=== PATIENT | female | born 1950 | race Caucasian/White ===

== ENCOUNTER 2021-03-08 15:04 | Inpatient (IN) ==
[2021-03-08] MEDS ORDERED: DEXAMETHASONE 10 MG/ML VIAL IV ONE (15:46)
--- NOTE | 2021-03-08 17:21 | Emergency Department Note ---
HPI General Chief complaint: Cold/Flu Symptoms Stated complaint: Covid Time Seen by Provider: 03/08/21 15:07 Source: EMS Mode of arrival: EMS Limitations: no limitations History of Present Illness HPI Narrative: This is a 70-year-old female patient with 10 days of Covid symptoms who presented to [facility] yesterday and tested positive for Covid. Chest x-ray was suggestive of a right lower lobe infiltrate and the patient was started on prednisone and levofloxacin. She returned to the [facility] again today for worsening shortness of breath and was noted to be 75% on room air. She was sent to the emergency room for further evaluation. At the bedside the patient is requiring 4 L of O2 to keep her sats above 90%. Off oxygen she is satting at 79%. She endorses feeling lightheaded with positional changes. Past medical history is significant for hypothyroidism and asthma. Patient is unvaccinated for Covid. Related Data Home Medications Medication Instructions Recorded Confirmed levothyroxine 100 mcg tablet 100 mcg PO QDAY tab 03/07/21 03/08/21 Allergies Allergy/AdvReac Type Severity Reaction Status Date / Time No Known Drug Allergies Allergy Verified 03/08/21 15:06 Review of Systems ROS ROS Narrative: Narrative: All systems ED: reviewed and negative except as stated. [facility] Narrative Patient History Narrative: Narrative: Medical/Surgical/Family History All Active Problems (Updated 03/08/21 @ 19:19 by Renata Hood PA-C) Respiratory failure with hypoxia (Acute) Pneumonia (Acute) Fever (Acute) Cough (Acute) Malaise (Acute) COVID-19 (Acute) Medical History Cough COVID-19 Fever Malaise Pneumonia Social History Smoking Status: Never smoker Exam Narrative Narrative: General: AOx3, NAD, nontoxic appearing. Pleasant and conversant. HEENT: PERRLA, EOMI, normocephalic. Moist mucous membranes. Normal facies and normal dentition. Respiratory: Bilateral crackles noted. No respiratory distress. Unlabored breathing. Heart: Regular rate and rhythm, no murmurs/clicks/rubs. Abdomen: Non-tender, Non distended, normal bowel tones. No organomegaly. Extremities: Warm and well perfused. No edema. DP 2+ bilaterally. No venous stasis. Neuro: No focal deficits. Cranial nerves II-XII normal. Skin: Warm dry, no rashes or lesions, no cyanosis. Psych: Normal mood and affect Heme/Lymph: No abnormal bruising General Limitations: no limitations Course Course Course Narrative: 70-year-old female presents for acute hypoxic respiratory failure secondary to Covid pneumonia. Reevaluation(s) Reevaluation #1: Obtain CBC, CMP query for superimposed bacterial infection Give 6 mg IV Decadron x1 dose now Patient will likely need admission for acute hypoxic respiratory failure and high oxygen requirements Vital Signs Vital signs: Vital Signs Temperature 98.1 F 03/08/21 15:06 Pulse Rate 63 03/08/21 15:06 Respiratory Rate 20 03/08/21 15:06 Blood Pressure 105/65 03/08/21 15:06 Pulse Oximetry (%) 92 03/08/21 15:06 Temperature 98.1 F 03/08/21 15:06 Pulse Rate 70 03/08/21 19:31 Respiratory Rate 20 03/08/21 15:06 Blood Pressure 123/72 03/08/21 19:31 Pulse Oximetry (%) 88 L 03/08/21 19:31 MDM MDM Narrative Medical decision making narrative: Acute hypoxic respiratory failure Covid pneumonia The patient received 2 L of IV fluids between minor care in the ER today. Her blood pressures have been stable with stable pulse. She continues to be hypoxic with requirement of 4 L O2. She meets admission criteria. She has been given Decadron x1 dose. Hospitalist has accepted the patient for admission. Patient is being disposed to PCU. Lab Data Result diagrams: 03/08/21 16:11 03/08/21 16:11 Labs: Lab Results 03/08/21 03/08/21 03/08/21 Range/Units 16:07 16:11 16:11 WBC 7.0 (4.5-11.0) K/mcL RBC 4.36 (3.59-5.38) M/mcL Hgb 12.7 (11.2-15.7) g/dL Hct 36.9 (34.1-44.9) % MCV 84.6 (80.0-100.0) fL MCH 29.1 (26.0-34.0) pg MCHC 34.4 (31.0-36.0) g/dL RDW 12.0 (11.5-14.5) % Plt Count 233 (140-440) K/mcL MPV 10.8 H (7.4-10.4) fL Seg Neutrophils % 82 H (38-78) % Band Neutrophils % 3 (0-10) % Lymphocytes % 9 L (15-49) % Monocytes % (Manual) 6 (1-12) % Platelet Estimate Normal (Normal) RBC Morphology Normal (Normal) Sodium 125 L (133-145) mmol/L Potassium 3.5 (3.3-5.1) mmol/L Chloride 93 L (96-108) mmol/L Carbon Dioxide 22 (22-30) mmol/L Anion Gap 10.0 (8.0-16.0) BUN 11 (8-23) mg/dL Creatinine 0.7 (0.6-1.1) mg/dL GFR Calculation 89 Glucose 130 H (70-105) mg/dL Calcium 7.9 L (8.6-10.4) mg/dL Total Bilirubin 0.4 (0.1-1.0) mg/dL AST 64 H (<32) U/L ALT 41 H (<40) U/L Alkaline Phosphatase 60 (39-117) U/L Total Protein 5.8 L (5.9-8.4) gm/dL Albumin 3.0 L (3.2-5.2) gm/dL Globulin 2.8 (2.2-3.7) gm/dL Albumin/Globulin Ratio 1.1 (1.0-2.3) Urine Color Yellow Urine Appearance Clear (Clear) Urine pH 6.0 (5.0-9.0) Ur Specific [place] 1.008 (1.000-1.035) Urine Protein Negative (Negative) mg/dL Urine Glucose (UA) Negative (Negative) mg/dL Urine Ketones Negative (Negative) mg/dL Urine Occult Blood Negative (Negative) mg/dL Urine Nitrate Negative (Negative) Urine Bilirubin Negative (Negative) mg/dL Urine Urobilinogen Negative mg/dL Ur Leukocyte Esterase Negative (Negative) /ug Ur Culture Indicated? No Discharge Plan Patient/Caregiver Discharge Instructions Pt seen by MORTICIAN HELPER/PA only: Yes Clinical Impression: COVID-19, Respiratory failure with hypoxia Patient Disposition: Xfer As Inpt ([facility]) Condition: Fair Prescriptions: No Action levothyroxine 100 mcg tablet 100 mcg PO QDAY RF: 0
[2021-03-08] MEDS ORDERED: 0.9 % SODIUM CHLORIDE 1,000 ML IV ONE (17:24)
[2021-03-08 17:47] LABS: Hematocrit 36.9 % (34.1-44.9); Hemoglobin 12.7 g/dL (11.2-15.7); Mean Cell Volume 84.6 fL (80.0-100.0); Mean Corpuscular HGB Conc 34.4 g/dL (31.0-36.0); Mean Platelet Volume 10.8 fL (7.4-10.4); Platelet Count 233 K/mcL (140-440); RBC 4.36 M/mcL (3.59-5.38)
[2021-03-08 17:59] LABS: Appearance,Urine CLEAR (Clear); Bilirubin,Urine Negative (Negative); Color,Urine YELLOW; Culture Indicated,Urine No; Glucose,Urine (UA) Negative (Negative); Ketones,Urine Negative (Negative); Leukocyte Esterase,Urine Negative /ug (Negative); Nitrate,Urine Negative (Negative); Protein,Urine Negative (Negative); Specific Gravity,Urine 1.008 (1.000-1.035); Urine Blood Negative (Negative); Urobilinogen,Urine Negative
[2021-03-08 18:07] LABS: ALT/SGPT 41 U/L (<40); AST/SGOT 64 U/L (<32); Albumin/Globulin Ratio 1.1 (1.0-2.3); Alkaline Phosphatase 60 U/L (39-117); Bilirubin,Total 0.4 mg/dL (0.1-1.0); Blood Urea Nitrogen 11 mg/dL (8-23); Calcium 7.9 mg/dL (8.6-10.4); Carbon Dioxide 22 mmol/L (22-30); Chloride 93 mmol/L (96-108); Globulin 2.8 gm/dL (2.2-3.7); Glomerular Filtration Rate 89; Glucose 130 mg/dL (70-105)
[2021-03-08 18:31] LABS: Band Neutrophils % 3 % (0-10); Lymphocytes % 9 % (15-49); Monocytes % (Manual) 6 % (1-12); Platelet Estimate NORMAL (Normal); RBC Morphology NORMAL (Normal); Segmented Neutrophils % 82 % (38-78)
--- NOTE | 2021-03-08 20:31 | Internal Med History&Physical ---
HPI History of Present Illness Patient information: Note initiated : 03/08/21 at 8:22 pm Service Date, if different from initiated Date: [] Patient: Jose J Hinson a 70 y/o F admitted on for Covid. Chief Complaint: [CoVID pneumonia] History of present illness: Ms. Hinson is a 70 year old F history of hypothyroidism presenting with 10-day history of chills, shortness of breath, productive cough, and general body weakness. She is not vaccinated against COVID-19. She has 10-day course of symptoms including chills, shortness of breath, productive cough, and general body weakness. She denies respiratory wheezing. She denied fever or diaphoresis. She denies muscle aches. She denies chest pain. She was being diagnosed with [facility] Today she was referred to our ER because of oxygen desaturations. Vital signs significant for oxygen saturations as low as upper 70s on room air, with rest of the vital signs within normal limits. Labs significant for lack of leukocytosis with WBC 7.0. Chemistry significant for hyponatremia with sodium 125. Chest x-ray from March 07, 2021 showed bilateral lower lung lobe infiltrates consistent with COVID-19 pneumonia. Constitutional Constitutional: Present chills, fatigue and weakness; Absent excessive sweating and fever(s) EENT Eyes: Absent blurry vision, change in vision, loss of vision and other visual disturbances Ears: Absent decreased hearing and tinnitus Nose, mouth and throat: Absent abnormal hearing, dry mouth, headache(s), nasal congestion and sore throat Cardiovascular Cardiovascular: Absent chest pain, chest pain at rest, edema, irregular heart rhythm and palpatations Respiratory Respiratory: Present cough, dyspnea, dyspnea on exertion and excessive phlegm production; Absent wheezing Gastrointestinal Gastrointestinal: Absent abdominal pain, constipation, diarrhea, nausea and vomiting Musculoskeletal Musculoskeletal: Absent back pain, deformity, limited range of motion, muscle cramps, muscle weakness and numbness Integumentary Integumentary: Absent lesions, rash and wounds Neurological Neurological: Absent focal weakness, headache(s) and numbness Psychiatric Psychiatric: Absent anxiety, depression and hallucinations PFSH PFSH All Active Problems (Updated 03/08/21 @ 20:26 by Luis M Newberry MD) Hypothyroidism (Acute) Hyponatremia (Acute) Respiratory failure with hypoxia (Acute) Pneumonia (Acute) Fever (Acute) Cough (Acute) Malaise (Acute) COVID-19 (Acute) Medical History Cough COVID-19 Fever Malaise Pneumonia MEDS/ALLERGIES Home Medications and Allergies Home Medications Medication Instructions Recorded Confirmed Type levothyroxine 100 mcg tablet 100 mcg PO QDAY tab 03/07/21 03/08/21 History Allergies Allergy/AdvReac Type Severity Reaction Status Date / Time No Known Drug Allergies Allergy Verified 03/08/21 15:06 EXAM Constitutional Vitals: Temp Pulse Resp BP Pulse Ox 36.7 C 70 20 123/72 88 L 03/08/21 15:06 03/08/21 19:31 03/08/21 15:06 03/08/21 19:31 03/08/21 19:31 General appearance: cooperative and mild distress Head Head exam: Present atraumatic and normocephalic Eye Eye exam: Present EOMI and PERRL ENT ENT exam: Present mucous membranes moist, normal exam and normal external ear exam Additional comments: Oxymask in place Neck Neck exam: Present normal inspection; Absent lymphadenopathy, tenderness and thyromegaly Respiratory Respiratory exam: Present rhonchi; Absent accessory muscle use, respiratory distress and wheezes Cardiovascular Cardiovascular exam: Present normal rate and rhythm; Absent JVD GI/Abdominal GI/Abdominal exam: Present normal bowel sounds and soft; Absent organomegaly and tenderness Extremities Exam Extremities exam: Present full ROM, normal capillary refill and normal inspection; Absent tenderness Neurological Exam Neurological exam: Present alert, CN II-XII intact and oriented X3; Absent motor sensory deficit Psychiatric Psychiatric exam: Present normal affect and normal mood; Absent anxious and depressed Skin Skin exam: Present dry and intact DATA Data Completed and Pending Labs: Labs from last 24 hours 03/08/21 03/08/21 03/08/21 20:20 16:11 16:11 WBC 7.0 RBC 4.36 Hgb 12.7 Hct 36.9 MCV 84.6 MCH 29.1 MCHC 34.4 RDW 12.0 Plt Count 233 MPV 10.8 H Seg Neutrophils % 82 H Band Neutrophils % 3 Lymphocytes % 9 L Monocytes % (Manual) 6 Platelet Estimate Normal RBC Morphology Normal VBG Lactic Acid Pending Sodium 125 L Potassium 3.5 Chloride 93 L Carbon Dioxide 22 Anion Gap 10.0 BUN 11 Creatinine 0.7 GFR Calculation 89 Glucose 130 H Calcium 7.9 L Total Bilirubin 0.4 AST 64 H ALT 41 H Alkaline Phosphatase 60 Total Protein 5.8 L Albumin 3.0 L Globulin 2.8 Albumin/Globulin Ratio 1.1 Urine Color Urine Appearance Urine pH Ur Specific [place] Urine Protein Urine Glucose (UA) Urine Ketones Urine Occult Blood Urine Nitrate Urine Bilirubin Urine Urobilinogen Ur Leukocyte Esterase Ur Culture Indicated? 03/08/21 16:07 WBC RBC Hgb Hct MCV MCH MCHC RDW Plt Count MPV Seg Neutrophils % Band Neutrophils % Lymphocytes % Monocytes % (Manual) Platelet Estimate RBC Morphology VBG Lactic Acid Sodium Potassium Chloride Carbon Dioxide Anion Gap BUN Creatinine GFR Calculation Glucose Calcium Total Bilirubin AST ALT Alkaline Phosphatase Total Protein Albumin Globulin Albumin/Globulin Ratio Urine Color Yellow Urine Appearance Clear Urine pH 6.0 Ur Specific [place] 1.008 Urine Protein Negative Urine Glucose (UA) Negative Urine Ketones Negative Urine Occult Blood Negative Urine Nitrate Negative Urine Bilirubin Negative Urine Urobilinogen Negative Ur Leukocyte Esterase Negative Ur Culture Indicated? No A/P Assessment and plan (1) COVID-19: Status: Acute (2) Respiratory failure with hypoxia: Status: Acute (3) Hyponatremia: Status: Acute (4) Hypothyroidism: Status: Acute Narrative A/P Narrative: Assessment and Plans: 1. CoVID pneumonia with acute respiratory failure with hypoxia: Admit to inpatient PCU with telemetry Isolation: airborne and contact Blood culture Serial lactic acid Procalcitonin Inflammatory markers ABG cbc w/ auto diff daily to trend WBC Supplemental oxygen titrate to achieve spo2>=92% Remdesivir Dexamethasone Lovenox No diuretics given hyponatremia; instead, give IV NS@75cc/hr Tylenol PRN fever Robitussin DM PRN cough DuoNeb NEB q4hr PRN wheezing 2. Hyponatremia: Unknown baseline serum sodium level IV NS@75cc/hr BMP q8hr, goal of correction 8-10 point per first 24 hours to avoid neurological complications such as central pontine myelinolysis 3. Hypothyroidism: Continue thyroid replacement therapy GI ppx: not currently indicated DVT ppx: Lovenox Code status: Full Prognosis: guarded Disposition: inpatient PCU Time Spent With Patient Time: Total time spent is greater than 50% in coordination of care (as documented) at patient's floor/unit and/or counseling patient: Total time spent with greater than 50% in coordination of care (as documented) at patient's floor/unit and/or counseling patient:: Greater than 35 minutes
[2021-03-08] MEDS ORDERED: SENNOSIDES 1 TABLET PO PRN (21:35)
[2021-03-08] MEDS ORDERED: ONDANSETRON 4 MG/2 ML VIAL IV PRN (21:35)
[2021-03-08] MEDS ORDERED: IPRATROPIUM/ALBUTEROL 3 ML AMPUL.NEB NEB PRN (21:35)
[2021-03-08] MEDS ORDERED: LACTULOSE 20 GM/30 ML ORAL.SOL PO PRN (21:35)
[2021-03-08] MEDS ORDERED: REMDESIVIR 200 MG in 0.9 % SODIUM CHLORIDE 250 ML IV ONE ×2 (21:35→22:00)
[2021-03-08] MEDS ORDERED: 0.9 % SODIUM CHLORIDE 1,000 ML IV SCH (21:35)
[2021-03-08] MEDS: DOCUSATE SODIUM 100 MG CAPSULE PO SCH (22:21)
[2021-03-08] MEDS: 0.9 % SODIUM CHLORIDE 10 ML SYRINGE IV SCH (22:28)
[2021-03-08] MEDS: ACETAMINOPHEN 325 MG TABLET PO PRN (23:14)
[2021-03-08] MEDS: ENOXAPARIN 40 MG/0.4 ML SYRINGE SQ SCH (23:15)
[2021-03-08 23:32] LABS: Prothrombin Time 13.4 sec (11.9-14.5)
[2021-03-08 23:36] LABS: Blood Urea Nitrogen 8 mg/dL (8-23); Calcium 8.2 mg/dL (8.6-10.4); Carbon Dioxide 21 mmol/L (22-30); Chloride 101 mmol/L (96-108); Glomerular Filtration Rate 93; Glucose 149 mg/dL (70-105)
[2021-03-08 23:37] LABS: ALT/SGPT 40 U/L (<40); AST/SGOT 65 U/L (<32); Albumin/Globulin Ratio 1.1 (1.0-2.3); Alkaline Phosphatase 62 U/L (39-117); Bilirubin,Total 0.4 mg/dL (0.1-1.0); Globulin 2.8 gm/dL (2.2-3.7); Lactate Dehydrogenase 504 U/L (135-225)
[2021-03-09] MEDS: 0.9 % SODIUM CHLORIDE 10 ML SYRINGE IV SCH ×3 (06:05→21:01)
[2021-03-09] MEDS: LEVOTHYROXINE 100 MCG TABLET PO SCH (06:54)
[2021-03-09 07:14] LABS: Basophils # (Auto) 0.01 K/mcL (0.00-0.30); Basophils % (Auto) 0.1 % (0.0-2.0); Eosinophils # (Auto) 0 K/mcL (0.00-0.70); Eosinophils % (Auto) 0 % (0.0-7.0); Hematocrit 36.7 % (34.1-44.9); Hemoglobin 12.6 g/dL (11.2-15.7); Lymphocytes # (Auto) 0.62 K/mcL (1.50-4.80); Lymphocytes % (Auto) 8.4 % (15.5-49.0); Mean Cell Volume 85.3 fL (80.0-100.0); Mean Corpuscular HGB Conc 34.3 g/dL (31.0-36.0); Mean Platelet Volume 10.3 fL (7.4-10.4); Monocytes # (Auto) 0.22 K/mcL (0.10-0.90); Neutrophils % (Auto) 88.5 % (38.0-78.0); Platelet Count 277 K/mcL (140-440); Red Cell Distribution Width 12.3 % (11.5-14.5); WBC 7.4 K/mcL (4.5-11.0)
[2021-03-09] MEDS ORDERED: LEVOTHYROXINE 100 MCG TABLET PO SCH (07:30)
[2021-03-09 07:36] LABS: Blood Urea Nitrogen 7 mg/dL (8-23); Carbon Dioxide 20 mmol/L (22-30); Chloride 102 mmol/L (96-108); Glomerular Filtration Rate 93; Glucose 139 mg/dL (70-105)
[2021-03-09] MEDS: DOCUSATE SODIUM 100 MG CAPSULE PO SCH ×2 (08:09→21:00)
[2021-03-09] MEDS: DEXAMETHASONE 10 MG/ML VIAL IV SCH (08:13)
[2021-03-09] MEDS: ENOXAPARIN 40 MG/0.4 ML SYRINGE SQ SCH ×2 (08:13→21:00)
[2021-03-09] MEDS: guaiFENesin/DEXTROMETHORPHAN ORAL SOL PO PRN (10:20)
[2021-03-09 10:22] LABS: ALT/SGPT 38 U/L (<40); AST/SGOT 60 U/L (<32); Alkaline Phosphatase 59 U/L (39-117)
--- NOTE | 2021-03-09 10:29 | Internal Med Progress Note ---
SUBJECTIVE Subjective Patient information: Note initiated : 03/09/21 at 10:24 am Service Date, if different from initiated Date: [] Patient: Jose J Hinson a 70 y/o F admitted on 03/08/21 for Covid. Chief Complaint: [CoVID pneumonia] Interval history: History of present illness: Ms. Hinson is a 70 year old F history of hypothyroidism presenting with 10-day history of chills, shortness of breath, productive cough, and general body weakness. She is not vaccinated against COVID-19. She has 10-day course of symptoms including chills, shortness of breath, productive cough, and general body weakness. She denies respiratory wheezing. She denied fever or diaphoresis. She denies muscle aches. She denies chest pain. She was being [facility] Today she was referred to our ER because of oxygen de saturations. Vital signs significant for oxygen saturations as low as upper 70s on room air, with rest of the vital signs within normal limits. Labs significant for lack of leukocytosis with WBC 7.0. Chemistry significant for hyponatremia with sodium 125. Chest x-ray from March 07, 2021 showed bilateral lower lung lobe infiltrates consistent with COVID-19 pneumonia. 03/09: Afebrile. Been on CPAP with FiO2 60% overnight. c/o chest pain. c/o productive cough with sputum production. c/o wheezing. Wants to be changed to DNI DNR. Constitutional Vitals: Vital Signs Temp Pulse Resp BP Pulse Ox 36.6 C 55 L 27 H 98/62 93 03/09/21 08:01 03/09/21 07:50 03/09/21 09:59 03/09/21 09:00 03/09/21 09:59 Period Temp Pulse Resp BP Sys/Campo Pulse Ox Last 24 Hr 36.2 C-36.8 C 51-80 18-30 93-131/56-91 79-97 Intake and Output 03/08/21 03/09/21 03/09/21 21:59 05:59 13:59 Intake Total 1000 250 929 Output Total 225 950 300 Balance 775 -700 629 Weight 93.304 kg Intake & Output: Intake & Output 03/08/21 03/09/21 03/09/21 21:59 05:59 13:59 Intake Total 1000 250 929 Output Total 225 950 300 Balance 775 -700 629 Weight 93.304 kg Intake: IV 1000 250 929 Sodium Chloride 0.9% 1,000 ml @ 1000 929 75 mls/hr IV .[id number] [facility] Rx#: [id number] Veklury 200 mg In Sodium 250 Chloride 0.9% 250 ml @ 500 mls/ hr IV ONCE ONE Rx#:[id number] Output: Void Amount 225 950 300 Other: Meal Breakfast Percent of Meal Consumed 25% Feeding Ability Independent Urine Appearance Clear Clear Urine Color Pale Pale Urine Odor Normal Normal Stool Size Small Stool Color Brown Stool Consistency Soft # Bowel Movements 1 General appearance: cooperative and moderate distress Head Head exam: Present atraumatic and normocephalic Eye Eye exam: Present EOMI and PERRL ENT ENT exam: Present mucous membranes moist, normal exam and normal external ear exam Additional comments: CPAP in place Neck Neck exam: Present normal inspection; Absent lymphadenopathy, tenderness and thyromegaly Respiratory Respiratory exam: Present rhonchi; Absent accessory muscle use, respiratory distress and wheezes Cardiovascular Cardiovascular exam: Present normal rate and rhythm; Absent JVD GI/Abdominal GI/Abdominal exam: Present normal bowel sounds and soft; Absent organomegaly and tenderness Extremities Exam Extremities exam: Present full ROM, normal capillary refill and normal inspe ction; Absent tenderness Neurological Exam Neurological exam: Present alert, CN II-XII intact and oriented X3; Absent motor sensory deficit Psychiatric Psychiatric exam: Present normal affect and normal mood; Absent anxious and depressed Skin Skin exam: Present dry and intact OBJ DATA Labs CBC & Chem 7: 03/09/21 05:49 03/09/21 05:49 Labs: Abnormal Lab Results 03/09/21 03/09/21 03/09/21 05:49 05:49 05:49 MPV Neut % (Auto) 88.5 H Lymph % (Auto) 8.4 L Lymph # (Auto) 0.62 L Seg Neutrophils % Lymphocytes % Fibrinogen D-Dimer Sodium Chloride Carbon Dioxide 20 L BUN 7 L Glucose 139 H Calcium 8.0 L Ferritin AST 60 H ALT Lactate Dehydrogenase C-Reactive Protein Total Protein Albumin Procalcitonin 03/08/21 03/08/21 03/08/21 22:25 21:25 16:11 MPV Neut % (Auto) Lymph % (Auto) Lymph # (Auto) Seg Neutrophils % Lymphocytes % Fibrinogen 464 H D-Dimer 0.69 H Sodium 132 L Chloride Carbon Dioxide 21 L BUN Glucose 149 H Calcium 8.2 L Ferritin 1456.0 H AST 65 H ALT 40 H Lactate Dehydrogenase 504 H C-Reactive Protein 3.20 H Total Protein 5.8 L Albumin 3.0 L Procalcitonin 0.16 H 03/08/21 03/08/21 16:11 16:11 MPV 10.8 H Neut % (Auto) Lymph % (Auto) Lymph # (Auto) Seg Neutrophils % 82 H Lymphocytes % 9 L Fibrinogen D-Dimer Sodium 125 L Chloride 93 L Carbon Dioxide BUN Glucose 130 H Calcium 7.9 L Ferritin AST 64 H ALT 41 H Lactate Dehydrogenase C-Reactive Protein Total Protein 5.8 L Albumin 3.0 L Procalcitonin Meds: Medications Acetaminophen (Acetaminophen 325 Mg Tablet) 650 mg PO Q6HP PRN; Protocol PRN Reason: Per Pain Protocol/Fever > 101 Last Admin: 03/08/21 23:14 Dose: 650 mg Documented by: Albuterol/Ipratropium (Ipratropium/Albuterol 3 Ml Ampul.Neb) 3 ml NEB Q4HRT PRN PRN Reason: Wheezing Dexamethasone (Dexamethasone 10 Mg/Ml Vial) 6 mg IV DAILY [facility] Last Admin: 03/09/21 08:13 Dose: 6 mg Documented by: Docusate Sodium (Docusate Sodium 100 Mg Capsule) 100 mg PO BID [facility] Last Admin: 03/09/21 08:09 Dose: Not Given Documented by: Enoxaparin Sodium (Enoxaparin 40 Mg/0.4 Ml Syringe) 40 mg SQ BID [facility] Last Admin: 03/09/21 08:13 Dose: 40 mg Documented by: Guaifenesin (Guaifenesin/Dextromethorphan Oral Mini) 10 ml PO Q4HP PRN PRN Reason: Cough Last Admin: 03/09/21 10:20 Dose: 10 ml Documented by: REMDESIVIR 100 mg/ Sodium (Chloride) 250 mls @ 500 mls/hr IV DAILY@1400 [facility] Stop: 03/12/21 14:29 Ibuprofen (Ibuprofen 600 Mg Tablet) 600 mg PO QIDP PRN; Protocol PRN Reason: PAIN/FEVER > 101 Lactulose (Lactulose 20 Gm/30 Ml Oral.Mini) 10 gm PO DAILYP PRN PRN Reason: Constipation Levothyroxine Sodium (Levothyroxine 100 Mcg Tablet) 100 mcg PO ACB [facility] Last Admin: 03/09/21 06:54 Dose: 100 mcg Documented by: Ondansetron HCl (Ondansetron 4 Mg/2 Ml Vial) 4 mg IV Q4HP PRN; Protocol PRN Reason: Nausea And Vomiting Senna (Sennosides 1 Tablet) 2 tab PO HSP PRN PRN Reason: Constipation Sodium Chloride (0.9 % Sodium Chloride 10 Ml Syringe) 10 ml IV Q8 [facility] Last Admin: 03/09/21 06:05 Dose: 10 ml Documented by: A/P Assessment and plan (1) COVID-19: Status: Acute (2) Respiratory failure with hypoxia: Status: Acute (3) Hyponatremia: Status: Acute (4) Hypothyroidism: Status: Acute (5) Chest pain: Status: Acute Narrative A/P Narrative: Assessment and Plans: 1. CoVID pneumonia with acute respiratory failure with hypoxia: Stays in inpatient PCU with telemetry Isolation: airborne and contact Blood culture Serial lactic acid Procalcitonin Inflammatory markers ABG cbc w/ auto diff daily to trend WBC Supplemental oxygen titrate to achieve spo2>=92% Remdesivir Dexamethasone Lovenox No diuretics, saline lock Tylenol PRN fever Robitussin DM PRN cough DuoNeb NEB q4hr PRN wheezing 2. Hyponatremia: RESOLVED Serum sodium level 136 on 03/09 Saline lock Hold off any diuretics 3. Hypothyroidism: Continue thyroid replacement therapy 4. Chest pain: DDx: MSK costochondritis from cough vs ACS vs GI such as GERD Robitussin DM PRN cough Ibuprofen 600mg PO QID PRN pain Troponin-i ECG Protonix IV GI ppx: Protonix IV DVT ppx: Lovenox Code status: DNI DNR Prognosis: extremely guarded Disposition: inpatient PCU Time Spent With Patient Time: Total time spent is greater than 50% in coordination of care (as documented) at patient's floor/unit and/or counseling patient:
[2021-03-09] MEDS: IBUPROFEN 600 MG TABLET PO PRN ×2 (13:55→20:59)
[2021-03-09] MEDS: REMDESIVIR 100 MG in 0.9 % SODIUM CHLORIDE 250 ML IV SCH (14:05)
[2021-03-09] MEDS: ZOLPIDEM 5 MG TABLET PO SCH (21:00)
[2021-03-10] MEDS: IBUPROFEN 600 MG TABLET PO PRN ×2 (03:14→14:25)
[2021-03-10] MEDS: guaiFENesin/DEXTROMETHORPHAN ORAL SOL PO PRN ×2 (03:14→17:14)
[2021-03-10 07:03] LABS: Basophils # (Auto) 0.01 K/mcL (0.00-0.30); Basophils % (Auto) 0.1 % (0.0-2.0); Eosinophils # (Auto) 0 K/mcL (0.00-0.70); Eosinophils % (Auto) 0 % (0.0-7.0); Hematocrit 36.3 % (34.1-44.9); Hemoglobin 12.1 g/dL (11.2-15.7); Lymphocytes # (Auto) 0.98 K/mcL (1.50-4.80); Lymphocytes % (Auto) 9.8 % (15.5-49.0); Mean Cell Volume 86.8 fL (80.0-100.0); Mean Corpuscular HGB Conc 33.3 g/dL (31.0-36.0); Mean Platelet Volume 10.4 fL (7.4-10.4); Monocytes # (Auto) 0.32 K/mcL (0.10-0.90); Monocytes % (Auto) 3.2 % (1.0-12.0); Platelet Count 311 K/mcL (140-440); RBC 4.18 M/mcL (3.59-5.38); Red Cell Distribution Width 12.5 % (11.5-14.5)
[2021-03-10 07:43] LABS: ALT/SGPT 37 U/L (<40); AST/SGOT 50 U/L (<32); Albumin 2.8 gm/dL (3.2-5.2); Albumin/Globulin Ratio 1.1 (1.0-2.3); Alkaline Phosphatase 57 U/L (39-117); Bilirubin,Total 0.5 mg/dL (0.1-1.0); Blood Urea Nitrogen 13 mg/dL (8-23); Calcium 7.9 mg/dL (8.6-10.4); Carbon Dioxide 20 mmol/L (22-30); Chloride 105 mmol/L (96-108); Globulin 2.5 gm/dL (2.2-3.7); Glomerular Filtration Rate 99; Glucose 106 mg/dL (70-105)
[2021-03-10] MEDS: DEXAMETHASONE 10 MG/ML VIAL IV SCH (08:00)
[2021-03-10] MEDS: ENOXAPARIN 40 MG/0.4 ML SYRINGE SQ SCH ×2 (08:00→22:41)
[2021-03-10] MEDS: DOCUSATE SODIUM 100 MG CAPSULE PO SCH ×2 (08:00→21:03)
[2021-03-10] MEDS: LEVOTHYROXINE 100 MCG TABLET PO SCH (08:00)
[2021-03-10] MEDS: 0.9 % SODIUM CHLORIDE 10 ML SYRINGE IV SCH ×3 (08:00→23:04)
[2021-03-10] MEDS: PANTOPRAZOLE 40 MG VIAL IV SCH (08:27)
[2021-03-10 09:32] LABS: Neutrophils % (Auto) 86.9 % (38.0-78.0)
--- NOTE | 2021-03-10 10:53 | Internal Med Progress Note ---
SUBJECTIVE Subjective Patient information: Note initiated : 03/10/21 at 10:48 am Service Date, if different from initiated Date: [] Patient: Jose J Hinson a 70 y/o F admitted on 03/08/21 for Covid. Chief Complaint: [CoVID pneumonia] Interval history: History of present illness: Ms. Hinson is a 70 year old F history of hypothyroidism presenting with 10-day history of chills, shortness of breath, productive cough, and general body weakness. She is not vaccinated against COVID-19. She has 10-day course of symptoms including chills, shortness of breath, productive cough, and general body weakness. She denies respiratory wheezing. She denied fever or diaphoresis. She denies muscle aches. She denies chest pain. She was being diagnosed with [facility] Today she was referred to our ER because of oxygen de saturations. Vital signs significant for oxygen saturations as low as upper 70s on room air, with rest of the vital signs within normal limits. Labs significant for lack of leukocytosis with WBC 7.0. Chemistry significant for hyponatremia with sodium 125. Chest x-ray from March 07, 2021 showed bilateral lower lung lobe infiltrates consistent with COVID-19 pneumonia. 03/09: Afebrile. Been on CPAP with FiO2 60% overnight. c/o chest pain. c/o productive cough with sputum production. c/o wheezing. Wants to be changed to DNI DNR. 03/10: Afebrile. Been on BiPAP 15/10, FiO2 60%. c/o SOB. c/o productive cough with sputum production. Denies chest pain. Denies wheezing. Denies fever, chills, or sweating. Constitutional Vitals: Vital Signs Temp Pulse Resp BP Pulse Ox 36.8 C 65 23 H 99/65 94 03/10/21 08:01 03/10/21 09:35 03/10/21 09:35 03/10/21 08:01 03/10/21 09:35 Period Temp Pulse Resp BP Sys/Campo Pulse Ox Last 24 Hr 36.2 C-36.8 C 51-66 10-26 79-110/50-73 84-99 Intake and Output 03/09/21 03/10/21 03/10/21 21:59 05:59 13:59 Intake Total 250 240 Output Total 420 293 Balance -170 293 240 Weight 93.395 kg Intake & Output: Intake & Output 03/09/21 03/10/21 03/10/21 21:59 05:59 13:59 Intake Total 250 240 Output Total 420 293 Balance -170 -293 240 Weight 93.395 kg Intake: IV 250 Veklury 100 mg In Sodium 250 Chloride 0.9% 250 ml @ 500 mls/ hr IV DAILY@1400 [facility] Rx#: [id number] Oral 240 Output: Urine Catheter Amount 420 293 Other: Meal Breakfast Percent of Meal Consumed 50% Feeding Ability Assist with Tray Set Up Urine Appearance Clear Clear Urine Color Straw Pale Urine Odor Normal Stool Size Smear Stool Color Green Stool Consistency Watery # Bowel Movements 1 General appearance: cooperative and no acute distress Exam: Prone Head Head exam: Present atraumatic and normocephalic Eye Eye exam: Present EOMI and PERRL ENT ENT exam: Present mucous membranes moist, normal exam and normal external ear exam Additional comments: BiPAP in place Neck Neck exam: Present normal inspection; Absent lymphadenopathy, tenderness and thyromegaly Respiratory Respiratory exam: Present rhonchi; Absent accessory muscle use, respiratory distress and wheezes Cardiovascular Cardiovascular exam: Present normal rate and rhythm; Absent JVD GI/Abdominal GI/Abdominal exam: Present normal bowel sounds and soft; Absent organomegaly and tenderness Extremities Exam Extremities exam: Present full ROM, normal capillary refill and normal inspection; Absent tenderness Neurological Exam Neurological exam: Present alert, CN II-XII intact and oriented X3; Absent motor sensory deficit Psychiatric Psychiatric exam: Present normal affect and normal mood; Absent anxious and depressed Skin Skin exam: Present dry and intact OBJ DATA Labs CBC & Chem 7: 03/10/21 05:26 03/10/21 05:25 Labs: Abnormal Lab Results 03/10/21 03/10/21 03/09/21 05:26 05:25 05:49 MPV Neut % (Auto) 86.9 H Lymph % (Auto) 9.8 L Lymph # (Auto) 0.98 L Seg Neutrophils % Lymphocytes % Absolute Neutrophils 8.66 H Fibrinogen D-Dimer Sodium Chloride Carbon Dioxide 20 L BUN Creatinine 0.5 L Glucose 106 H Calcium 7.9 L Ferritin AST 50 H 60 H ALT Lactate Dehydrogenase C-Reactive Protein Total Protein 5.3 L Albumin 2.8 L Procalcitonin 03/09/21 03/09/21 03/08/21 05:49 05:49 22:25 MPV Neut % (Auto) 88.5 H Lymph % (Auto) 8.4 L Lymph # (Auto) 0.62 L Seg Neutrophils % Lymphocytes % Absolute Neutrophils Fibrinogen 464 H D-Dimer 0.69 H Sodium Chloride Carbon Dioxide 20 L BUN 7 L Creatinine Glucose 139 H Calcium 8.0 L Ferritin AST ALT Lactate Dehydrogenase C-Reactive Protein Total Protein Albumin Procalcitonin 03/08/21 03/08/21 03/08/21 21:25 16:11 16:11 MPV Neut % (Auto) Lymph % (Auto) Lymph # (Auto) Seg Neutrophils % Lymphocytes % Absolute Neutrophils Fibrinogen D-Dimer Sodium 132 L 125 L Chloride 93 L Carbon Dioxide 21 L BUN Creatinine Glucose 149 H 130 H Calcium 8.2 L 7.9 L Ferritin 1456.0 H AST 65 H 64 H ALT 40 H 41 H Lactate Dehydrogenase 504 H C-Reactive Protein 3.20 H Total Protein 5.8 L 5.8 L Albumin 3.0 L 3.0 L Procalcitonin 0.16 H 03/08/21 16:11 MPV 10.8 H Neut % (Auto) Lymph % (Auto) Lymph # (Auto) Seg Neutrophils % 82 H Lymphocytes % 9 L Absolute Neutrophils Fibrinogen D-Dimer Sodium Chloride Carbon Dioxide BUN Creatinine Glucose Calcium Ferritin AST ALT Lactate Dehydrogenase C-Reactive Protein Total Protein Albumin Procalcitonin Meds: Medications Acetaminophen (Acetaminophen 325 Mg Tablet) 650 mg PO Q6HP PRN; Protocol PRN Reason: Per Pain Protocol/Fever > 101 Last Admin: 03/08/21 23:14 Dose: 650 mg Documented by: Albuterol/Ipratropium (Ipratropium/Albuterol 3 Ml Ampul.Neb) 3 ml NEB Q4HRT PRN PRN Reason: Wheezing Dexamethasone (Dexamethasone 10 Mg/Ml Vial) 6 mg IV DAILY [facility] Last Admin: 03/10/21 08:00 Dose: 6 mg Documented by: Docusate Sodium (Docusate Sodium 100 Mg Capsule) 100 mg PO BID [facility] Last Admin: 03/10/21 08:00 Dose: 100 mg Documented by: Enoxaparin Sodium (Enoxaparin 40 Mg/0.4 Ml Syringe) 40 mg SQ BID [facility] Last Admin: 03/10/21 08:00 Dose: 40 mg Documented by: Guaifenesin (Guaifenesin/Dextromethorphan Oral Mini) 10 ml PO Q4HP PRN PRN Reason: Cough Last Admin: 03/10/21 03:14 Dose: 10 ml Documented by: REMDESIVIR 100 mg/ Sodium (Chloride) 250 mls @ 500 mls/hr IV DAILY@1400 [facility] Stop: 03/12/21 14:29 Last Infusion: 03/09/21 14:39 Dose: Infused Documented by: Ibuprofen (Ibuprofen 600 Mg Tablet) 600 mg PO QIDP PRN; Protocol PRN Reason: PAIN/FEVER > 101 Last Admin: 03/10/21 03:14 Dose: 600 mg Documented by: Lactulose (Lactulose 20 Gm/30 Ml Oral.Mini) 10 gm PO DAILYP PRN PRN Reason: Constipation Levothyroxine Sodium (Levothyroxine 100 Mcg Tablet) 100 mcg PO ACB [facility] Last Admin: 03/10/21 08:00 Dose: 100 mcg Documented by: Ondansetron HCl (Ondansetron 4 Mg/2 Ml Vial) 4 mg IV Q4HP PRN; Protocol PRN Reason: Nausea And Vomiting Pantoprazole Sodium (Pantoprazole 40 Mg Vial) 40 mg IV QAMAC [facility] Last Admin: 03/10/21 08:27 Dose: 40 mg Documented by: Senna (Sennosides 1 Tablet) 2 tab PO HSP PRN PRN Reason: Constipation Sodium Chloride (0.9 % Sodium Chloride 10 Ml Syringe) 10 ml IV Q8 [facility] Last Admin: 03/10/21 08:00 Dose: 10 ml Documented by: Zolpidem Tartrate (Zolpidem 5 Mg Tablet) 10 mg PO HS [facility] Last Admin: 03/09/21 21:00 Dose: 10 mg Documented by: A/P Assessment and plan (1) COVID-19: Status: Acute (2) Respiratory failure with hypoxia: Status: Acute (3) Hyponatremia: Status: Acute (4) Hypothyroidism: Status: Acute (5) Chest pain: Status: Acute Narrative A/P Narrative: Assessment and Plans: 1. CoVID pneumonia with acute respiratory failure with hypoxia: Stays in inpatient PCU with telemetry Isolation: airborne and contact Blood culture, no growth to date Serial lactic acid Procalcitonin Inflammatory markers ABG cbc w/ auto diff daily to trend WBC Supplemental oxygen titrate to achieve spo2>=92% Remdesivir Dexamethasone Lovenox No diuretics, saline lock Tylenol PRN fever Robitussin DM PRN cough DuoNeb NEB q4hr PRN wheezing 2. Hyponatremia: RESOLVED Serum sodium level 138 on 03/10 Saline lock Hold off any diuretics 3. Hypothyroidism: Continue thyroid replacement therapy 4. Chest pain: Now resolved DDx: MSK costochondritis from cough vs ACS vs GI such as GERD Robitussin DM PRN cough Ibuprofen 600mg PO QID PRN pain Troponin-i <0.01 ECG no signs of acute ischemia Protonix IV GI ppx: Protonix IV DVT ppx: Lovenox Code status: DNI DNR Prognosis: extremely guarded Disposition: inpatient PCU Time Spent With Patient Time: Total time spent is greater than 50% in coordination of care (as documented) at patient's floor/unit and/or counseling patient:
[2021-03-10] MEDS ORDERED: POTASSIUM CHLORIDE 20 MEQ in DEXTROSE 5% IN WATER 250 ML IV ONE (13:00)
--- NOTE | 2021-03-10 13:34 | XRay Report ---
CLINICAL INFORMATION: f/u study; covid pna COMPARISON: 03/07/2021 FINDINGS: Heart is mildly enlarged but unchanged given different technique. Mediastinum and pulmonary vessels are normal. Moderate vague patchy infiltrate right mid and lower lung have improved. Smaller patchy infiltrate in the left base is also improved IMPRESSION: Moderate vague patchy infiltrates in the right mid and lower lung and a small patchy in the left lower lung have improved from the comparison x-ray three days ago Interpreted and Authenticated by: Matthew Keyes 03/10/21
[2021-03-10] MEDS: REMDESIVIR 100 MG in 0.9 % SODIUM CHLORIDE 250 ML IV SCH (14:13)
[2021-03-10] MEDS ORDERED: FUROSEMIDE 20 MG TABLET PO SCH (16:00)
[2021-03-10] MEDS: ZOLPIDEM 5 MG TABLET PO SCH (22:40)
[2021-03-11] MEDS: 0.9 % SODIUM CHLORIDE 10 ML SYRINGE IV SCH ×3 (05:36→22:05)
[2021-03-11 07:28] LABS: Basophils # (Auto) 0.04 K/mcL (0.00-0.30); Basophils % (Auto) 0.4 % (0.0-2.0); Eosinophils # (Auto) 0 K/mcL (0.00-0.70); Eosinophils % (Auto) 0 % (0.0-7.0); Hematocrit 44.2 % (34.1-44.9); Hemoglobin 13.4 g/dL (11.2-15.7); Lymphocytes # (Auto) 0.99 K/mcL (1.50-4.80); Lymphocytes % (Auto) 9.6 % (15.5-49.0); Mean Cell Volume 96.3 fL (80.0-100.0); Mean Corpuscular HGB Conc 30.3 g/dL (31.0-36.0); Mean Platelet Volume 9.8 fL (7.4-10.4); Monocytes # (Auto) 0.28 K/mcL (0.10-0.90); Monocytes % (Auto) 2.7 % (1.0-12.0); Neutrophils % (Auto) 87.3 % (38.0-78.0); Platelet Count 304 K/mcL (140-440); RBC 4.59 M/mcL (3.59-5.38); Red Cell Distribution Width 12.8 % (11.5-14.5); WBC 10.3 K/mcL (4.5-11.0)
[2021-03-11] MEDS: DOCUSATE SODIUM 100 MG CAPSULE PO SCH ×2 (07:47→22:04)
[2021-03-11 08:20] LABS: ALT/SGPT 34 U/L (<40); AST/SGOT 45 U/L (<32); Albumin 2.7 gm/dL (3.2-5.2); Alkaline Phosphatase 69 U/L (39-117); Bilirubin,Total 0.6 mg/dL (0.1-1.0); Blood Urea Nitrogen 12 mg/dL (8-23); Calcium 8.1 mg/dL (8.6-10.4); Carbon Dioxide 19 mmol/L (22-30); Chloride 104 mmol/L (96-108); Globulin 2.8 gm/dL (2.2-3.7); Glomerular Filtration Rate 93; Glucose 88 mg/dL (70-105)
--- NOTE | 2021-03-11 08:27 | Internal Med Progress Note ---
SUBJECTIVE Subjective Patient information: Note initiated : 03/11/21 at 8:26 am Service Date, if different from initiated Date: [] Patient: Jose J Hinson a 70 y/o F admitted on 03/08/21 for Covid. Chief Complaint: [CoVID pneumonia] Interval history: History of present illness: Ms. Hinson is a 70 year old F history of hypothyroidism presenting with 10-day history of chills, shortness of breath, productive cough, and general body weakness. She is not vaccinated against COVID-19. She has 10-day course of symptoms including chills, shortness of breath, productive cough, and general body weakness. She denies respiratory wheezing. She denied fever or diaphoresis. She denies muscle aches. She denies chest pain. She was being diagnosed with [facility] pneumonia [facility] at [facility]. Today she was referred to our ER because of oxygen jeremías aturations. Vital signs significant for oxygen saturations as low as upper 70s on room air, with rest of the vital signs within normal limits. Labs significant for lack of leukocytosis with WBC 7.0. Chemistry significant for hyponatremia with sodium 125. Chest x-ray from March 07, 2021 showed bilateral lower lung lobe infiltrates consistent with COVID-19 pneumonia. 03/09: Afebrile. Been on CPAP with FiO2 60% overnight. c/o chest pain. c/o productive cough with sputum production. c/o wheezing. Wants to be changed to DNI DNR. 03/10: Afebrile. Been on BiPAP 15/10, FiO2 60%. c/o SOB. c/o productive cough with sputum production. Denies chest pain. Denies wheezing. Denies fever, chills, or sweating. 03/11: Afebrile. Been on BiPAP 15/10, FiO2 75%. Been prone overnight. c/o SOB. Denies cough, sputum production, or wheezing.Denies chest pain. Denies fever, chills, or sweating. c/o anxiety. Constitutional Vitals: Vital Signs Temp Pulse Resp BP Pulse Ox 37.3 C H 84 25 H 96/62 88 L 03/11/21 08:01 03/11/21 08:01 03/11/21 08:01 03/11/21 08:01 03/11/21 08:01 Period Temp Pulse Resp BP Sys/Campo Pulse Ox Last 24 Hr 36.1 C-37.3 C 54-84 19-40 80-145/48-100 88-100 Intake and Output 03/10/21 03/11/21 03/11/21 21:59 05:59 13:59 Intake Total 510 Output Total 725 1000 0 Balance -215 -1000 0 Weight 93.803 kg Intake & Output: Intake & Output 03/10/21 03/11/21 03/11/21 21:59 05:59 13:59 Intake Total 510 Output Total 725 1000 0 Balance -215 -1000 0 Weight 93.803 kg Intake: IV 510 Potassium Chloride 20 Meq In 260 Dextrose 5% in Water 250 ml @ 130 mls/hr IV ONCE ONE Rx#: [id number] Veklury 100 mg In Sodium 250 Chloride 0.9% 250 ml @ 500 mls/ hr IV DAILY@1400 [facility] Rx#: [id number] Output: Urine Catheter Amount 725 1000 Void Amount 0 Other: Urine Appearance Clear Clear Clear Uretheral ([place]) Clear Urine Color Straw Pale Bright Yellow Uretheral ([place]) Bright Yellow Urine Odor Normal Normal Uretheral ([place]) Normal Stool Size Moderate Moderate Stool Color Brown Brown Yellow Stool Consistency Liquid Loose Loose General appearance: cooperative and no acute distress Exam: Prone Head Head exam: Present atraumatic and normocephalic Eye Eye exam: Present EOMI and PERRL ENT ENT exam: Present mucous membranes moist, normal exam and normal external ear exam Additional comments: BiPAP in place. Neck Neck exam: Present normal inspection; Absent lymphadenopathy, tenderness and thyromegaly Respiratory Respiratory exam: Present rhonchi; Absent accessory muscle use, respiratory distress and wheezes Cardiovascular Cardiovascular exam: Present normal rate and rhythm; Absent JVD GI/Abdominal GI/Abdominal exam: Present normal bowel sounds and soft; Absent organomegaly and tenderness Extremities Exam Extremities exam: Present full ROM, normal capillary refill and normal inspection; Absent tenderness Neurological Exam Neurological exam: Present alert, CN II-XII intact and oriented X3; Absent motor sensory deficit Psychiatric Psychiatric exam: Present normal affect and normal mood; Absent anxious and depressed Skin Skin exam: Present dry and intact OBJ DATA Labs CBC & Chem 7: 03/11/21 05:29 03/11/21 05:29 Labs: Abnormal Lab Results 08/03/11/21 03/10/21 05:29 05:29 05:26 MCHC 30.3 L MPV Neut % (Auto) 87.3 H 86.9 H Lymph % (Auto) 9.6 L 9.8 L Lymph # (Auto) 0.99 L 0.98 L Seg Neutrophils % Lymphocytes % Absolute Neutrophils 8.98 H 8.66 H Fibrinogen D-Dimer Sodium Chloride Carbon Dioxide 19 L BUN Creatinine Glucose Calcium 8.1 L Ferritin AST 45 H ALT Lactate Dehydrogenase C-Reactive Protein Total Protein 5.5 L Albumin 2.7 L Procalcitonin 03/10/21 03/09/21 03/09/21 05:25 05:49 05:49 MCHC MPV Neut % (Auto) Lymph % (Auto) Lymph # (Auto) Seg Neutrophils % Lymphocytes % Absolute Neutrophils Fibrinogen D-Dimer Sodium Chloride Carbon Dioxide 20 L 20 L BUN 7 L Creatinine 0.5 L Glucose 106 H 139 H Calcium 7.9 L 8.0 L Ferritin AST 50 H 60 H ALT Lactate Dehydrogenase C-Reactive Protein Total Protein 5.3 L Albumin 2.8 L Procalcitonin 03/09/21 03/08/21 03/08/21 05:49 22:25 21:25 MCHC MPV Neut % (Auto) 88.5 H Lymph % (Auto) 8.4 L Lymph # (Auto) 0.62 L Seg Neutrophils % Lymphocytes % Absolute Neutrophils Fibrinogen 464 H D-Dimer 0.69 H Sodium 132 L Chloride Carbon Dioxide 21 L BUN Creatinine Glucose 149 H Calcium 8.2 L Ferritin 1456.0 H AST 65 H ALT 40 H Lactate Dehydrogenase 504 H C-Reactive Protein 3.20 H Total Protein 5.8 L Albumin 3.0 L Procalcitonin 03/08/21 03/08/21 03/08/21 16:11 16:11 16:11 MCHC MPV 10.8 H Neut % (Auto) Lymph % (Auto) Lymph # (Auto) Seg Neutrophils % 82 H Lymphocytes % 9 L Absolute Neutrophils Fibrinogen D-Dimer Sodium 125 L Chloride 93 L Carbon Dioxide BUN Creatinine Glucose 130 H Calcium 7.9 L Ferritin AST 64 H ALT 41 H Lactate Dehydrogenase C-Reactive Protein Total Protein 5.8 L Albumin 3.0 L Procalcitonin 0.16 H Meds: Medications Acetaminophen (Acetaminophen 325 Mg Tablet) 650 mg PO Q6HP PRN; Protocol PRN Reason: Per Pain Protocol/Fever > 101 Last Admin: 03/08/21 23:14 Dose: 650 mg Documented by: Albuterol/Ipratropium (Ipratropium/Albuterol 3 Ml Ampul.Neb) 3 ml NEB Q4HRT PRN PRN Reason: Wheezing Dexamethasone (Dexamethasone 10 Mg/Ml Vial) 6 mg IV DAILY [facility] Last Admin: 03/10/21 08:00 Dose: 6 mg Documented by: Docusate Sodium (Docusate Sodium 100 Mg Capsule) 100 mg PO BID [facility] Last Admin: 03/11/21 07:47 Dose: Not Given Documented by: Enoxaparin Sodium (Enoxaparin 40 Mg/0.4 Ml Syringe) 40 mg SQ BID [facility] Last Admin: 03/10/21 22:41 Dose: 40 mg Documented by: Guaifenesin (Guaifenesin/Dextromethorphan Oral Mini) 10 ml PO Q4HP PRN PRN Reason: Cough Last Admin: 03/10/21 17:14 Dose: 10 ml Documented by: REMDESIVIR 100 mg/ Sodium (Chloride) 250 mls @ 500 mls/hr IV DAILY@1400 [facility] Stop: 03/12/21 14:29 Last Infusion: 03/10/21 17:30 Dose: Infused Documented by: Ibuprofen (Ibuprofen 600 Mg Tablet) 600 mg PO QIDP PRN; Protocol PRN Reason: PAIN/FEVER > 101 Last Admin: 03/10/21 14:25 Dose: 600 mg Documented by: Lactulose (Lactulose 20 Gm/30 Ml Oral.Mini) 10 gm PO DAILYP PRN PRN Reason: Constipation Levothyroxine Sodium (Levothyroxine 100 Mcg Tablet) 100 mcg PO ACB [facility] Last Admin: 03/10/21 08:00 Dose: 100 mcg Documented by: Ondansetron HCl (Ondansetron 4 Mg/2 Ml Vial) 4 mg IV Q4HP PRN; Protocol PRN Reason: Nausea And Vomiting Pantoprazole Sodium (Pantoprazole 40 Mg Vial) 40 mg IV QAMAC [facility] Last Admin: 03/10/21 08:27 Dose: 40 mg Documented by: Senna (Sennosides 1 Tablet) 2 tab PO HSP PRN PRN Reason: Constipation Sodium Chloride (0.9 % Sodium Chloride 10 Ml Syringe) 10 ml IV Q8 [facility] Last Admin: 03/11/21 05:36 Dose: 10 ml Documented by: Zolpidem Tartrate (Zolpidem 5 Mg Tablet) 10 mg PO HS [facility] Last Admin: 03/10/21 22:40 Dose: 10 mg Documented by: A/P Assessment and plan (1) COVID-19: Status: Acute (2) Respiratory failure with hypoxia: Status: Acute (3) Hyponatremia: Status: Acute (4) Hypothyroidism: Status: Acute (5) Chest pain: Status: Acute Narrative A/P Narrative: Assessment and Plans: 1. CoVID pneumonia with acute respiratory failure with hypoxia: Stays in inpatient PCU with telemetry Isolation: airborne and contact Blood culture, no growth to date Serial lactic acid Procalcitonin Inflammatory markers ABG cbc w/ auto diff daily to trend WBC Supplemental oxygen titrate to achieve spo2>=92%, currently on BiPAP Remdesivir Dexamethasone Lovenox No diuretics, saline lock Tylenol PRN fever Robitussin DM PRN cough DuoNeb NEB q4hr PRN wheezing Ativan 1mg IV q4-6hr PRN anxiety 2. Hyponatremia: RESOLVED Serum sodium level 136 on 03/11 Saline lock Hold off any diuretics 3. Hypothyroidism: Continue thyroid replacement therapy 4. Chest pain: Now resolved DDx: MSK costochondritis from cough vs ACS vs GI such as GERD Robitussin DM PRN cough Ibuprofen 600mg PO QID PRN pain Troponin-i <0.01 ECG no signs of acute ischemia Protonix IV GI ppx: Protonix IV DVT ppx: Lovenox Code status: DNI DNR Prognosis: extremely guarded Disposition: inpatient PCU Time Spent With Patient Time: Total time spent is greater than 50% in coordination of care (as documented) at patient's floor/unit and/or counseling patient:
[2021-03-11] MEDS: guaiFENesin/DEXTROMETHORPHAN ORAL SOL PO PRN (08:59)
[2021-03-11] MEDS: PANTOPRAZOLE 40 MG VIAL IV SCH (09:00)
[2021-03-11] MEDS: ENOXAPARIN 40 MG/0.4 ML SYRINGE SQ SCH ×2 (09:00→22:05)
[2021-03-11] MEDS: DEXAMETHASONE 10 MG/ML VIAL IV SCH (09:01)
[2021-03-11] MEDS: ACETAMINOPHEN 325 MG TABLET PO PRN (09:01)
[2021-03-11] MEDS: LORazepam 2 MG/ML VIAL IV PRN ×2 (09:01→22:04)
[2021-03-11] MEDS: LEVOTHYROXINE 100 MCG TABLET PO SCH (10:01)
[2021-03-11] MEDS: REMDESIVIR 100 MG in 0.9 % SODIUM CHLORIDE 250 ML IV SCH (14:00)
[2021-03-11] MEDS: IBUPROFEN 600 MG TABLET PO PRN (22:04)
[2021-03-11] MEDS: ZOLPIDEM 5 MG TABLET PO SCH (22:04)
[2021-03-11] MEDS ORDERED: LORazepam 2 MG/ML VIAL IV ONE (23:57)
[2021-03-12] MEDS ORDERED: LORazepam 2 MG/ML VIAL ONE (00:02)
[2021-03-12 06:46] LABS: Basophils # (Auto) 0.02 K/mcL (0.00-0.30); Basophils % (Auto) 0.2 % (0.0-2.0); Eosinophils # (Auto) 0 K/mcL (0.00-0.70); Eosinophils % (Auto) 0 % (0.0-7.0); Hematocrit 35.6 % (34.1-44.9); Hemoglobin 11.9 g/dL (11.2-15.7); Lymphocytes # (Auto) 0.89 K/mcL (1.50-4.80); Lymphocytes % (Auto) 7.9 % (15.5-49.0); Mean Cell Volume 86.6 fL (80.0-100.0); Mean Corpuscular HGB Conc 33.4 g/dL (31.0-36.0); Mean Platelet Volume 10.2 fL (7.4-10.4); Monocytes # (Auto) 0.19 K/mcL (0.10-0.90); Monocytes % (Auto) 1.7 % (1.0-12.0); Neutrophils % (Auto) 90.2 % (38.0-78.0); Platelet Count 271 K/mcL (140-440); RBC 4.11 M/mcL (3.59-5.38); Red Cell Distribution Width 12.5 % (11.5-14.5); WBC 11.2 K/mcL (4.5-11.0)
[2021-03-12] MEDS: PANTOPRAZOLE 40 MG VIAL IV SCH (07:06)
[2021-03-12] MEDS: 0.9 % SODIUM CHLORIDE 10 ML SYRINGE IV SCH ×3 (07:16→20:40)
[2021-03-12] MEDS ORDERED: LEVOTHYROXINE 100 MCG VIAL IV SCH (07:30)
[2021-03-12 07:39] LABS: ALT/SGPT 25 U/L (<40); AST/SGOT 29 U/L (<32); Albumin 2.6 gm/dL (3.2-5.2); Alkaline Phosphatase 65 U/L (39-117); Bilirubin,Total 0.8 mg/dL (0.1-1.0); Blood Urea Nitrogen 17 mg/dL (8-23); Calcium 7.9 mg/dL (8.6-10.4); Carbon Dioxide 22 mmol/L (22-30); Chloride 103 mmol/L (96-108); Globulin 2.6 gm/dL (2.2-3.7); Glomerular Filtration Rate 89; Glucose 105 mg/dL (70-105)
[2021-03-12] MEDS: LORazepam 2 MG/ML VIAL IV PRN ×3 (07:49→17:57)
[2021-03-12] MEDS: DOCUSATE SODIUM 100 MG CAPSULE PO SCH ×2 (07:49→20:39)
--- NOTE | 2021-03-12 07:57 | Internal Med Progress Note ---
SUBJECTIVE Subjective Patient information: Note initiated : 03/12/21 at 7:54 am Service Date, if different from initiated Date: [] Patient: Jose J Hinson a 70 y/o F admitted on 03/08/21 for Covid. Chief Complaint: [CoVID pneumonia] Interval history: History of present illness: Ms. Hinson is a 70 year old F history of hypothyroidism presenting with 10-day history of chills, shortness of breath, productive cough, and general body weakness. She is not vaccinated against COVID-19. She has 10-day course of symptoms including chills, shortness of breath, productive cough, and general body weakness. She denies respiratory wheezing. She denied fever or diaphoresis. She denies muscle aches. She denies chest pain. She was being diagnosed with Covid pneumonia yesterday at [facility]. Today she was referred to our ER because of oxygen jeremías aturations. Vital signs significant for oxygen saturations as low as upper 70s on room air, with rest of the vital signs within normal limits. Labs significant for lack of leukocytosis with WBC 7.0. Chemistry significant for hyponatremia with sodium 125. Chest x-ray from March 07, 2021 showed bilateral lower lung lobe infiltrates consistent with COVID-19 pneumonia. 03/09: Afebrile. Been on CPAP with FiO2 60% overnight. c/o chest pain. c/o productive cough with sputum production. c/o wheezing. Wants to be changed to DNI DNR. 03/10: Afebrile. Been on BiPAP 15/10, FiO2 60%. c/o SOB. c/o productive cough with sputum production. Denies chest pain. Denies wheezing. Denies fever, chills, or sweating. 03/11: Afebrile. Been on BiPAP 15/10, FiO2 75%. Been prone overnight. c/o SOB. Denies cough, sputum production, or wheezing.Denies chest pain. Denies fever, chills, or sweating. c/o anxiety. 03/12: Patient took off BiPAP mask last night for about 5min, and her oxygen desaturated to 20s. It took about 30min for her spo2 to go back to low 90s. Verified with patient about her code status, she still wants to be DNI DNR. Afebrile. Currently on BiPAP 15/10, FiO2 100%. c/o SOB. Denies cough, sputum production, or wheezing. Denies chest pain. Denies fever, chills, or sweating. Denies anxiety. Constitutional Vitals: Vital Signs Temp Pulse Resp BP Pulse Ox 36.2 C 80 25 H 120/70 92 03/12/21 04:02 03/12/21 05:00 03/12/21 07:01 03/12/21 07:01 03/12/21 07:01 Period Temp Pulse Resp BP Sys/Campo Pulse Ox Last 24 Hr 36.1 C-37.4 C 52-84 17-42 80-127/38-80 36-98 Intake and Output 03/11/21 03/12/21 03/12/21 21:59 05:59 13:59 Intake Total 490 120 Output Total 450 350 150 Balance 40 -230 -150 Weight 92.805 kg Intake & Output: Intake & Output 03/11/21 03/12/21 03/12/21 21:59 05:59 13:59 Intake Total 490 120 Output Total 450 350 150 Balance 40 -230 -150 Weight 92.805 kg Intake: IV 250 Veklury 100 mg In Sodium 250 Chloride 0.9% 250 ml @ 500 mls/ hr IV DAILY@1400 [facility] Rx#: [id number] Oral 240 120 Output: Urine Catheter Amount 450 350 150 Other: Urine Appearance Clear Clear Clear Sediment Urine Color Dark Yellow Dark Mckayla Dark Yellow General appearance: cooperative and no acute distress Exam: Prone Head Head exam: Present atraumatic and normocephalic Eye Eye exam: Present EOMI and PERRL ENT ENT exam: Present mucous membranes moist, normal exam and normal external ear exam Additional comments: BiPAP in place Neck Neck exam: Present normal inspection; Absent lymphadenopathy, tenderness and thyromegaly Respiratory Respiratory exam: Present rhonchi; Absent accessory muscle use, respiratory distress and wheezes Cardiovascular Cardiovascular exam: Present normal rate and rhythm; Absent JVD GI/Abdominal GI/Abdominal exam: Present normal bowel sounds and soft; Absent organomegaly and tenderness Extremities Exam Extremities exam: Present full ROM, normal capillary refill and normal inspection; Absent tenderness Neurological Exam Neurological exam: Present alert, CN II-XII intact and oriented X3; Absent motor sensory deficit Psychiatric Psychiatric exam: Present normal affect and normal mood; Absent anxious and depressed Skin Skin exam: Present dry and intact OBJ DATA Labs CBC & Chem 7: 03/12/21 05:22 03/12/21 05:23 Labs: Abnormal Lab Results 03/12/21 03/12/21 03/11/21 05:23 05:22 05:29 WBC 11.2 H MCHC Neut % (Auto) 90.2 H Lymph % (Auto) 7.9 L Lymph # (Auto) 0.89 L Absolute Neutrophils 10.12 H Carbon Dioxide 19 L Creatinine Glucose Calcium 7.9 L 8.1 L AST 45 H Total Protein 5.2 L 5.5 L Albumin 2.6 L 2.7 L 03/11/21 03/10/21 03/10/21 05:29 05:26 05:25 WBC MCHC 30.3 L Neut % (Auto) 87.3 H 86.9 H Lymph % (Auto) 9.6 L 9.8 L Lymph # (Auto) 0.99 L 0.98 L Absolute Neutrophils 8.98 H 8.66 H Carbon Dioxide 20 L Creatinine 0.5 L Glucose 106 H Calcium 7.9 L AST 50 H Total Protein 5.3 L Albumin 2.8 L 03/09/21 05:49 WBC MCHC Neut % (Auto) Lymph % (Auto) Lymph # (Auto) Absolute Neutrophils Carbon Dioxide Creatinine Glucose Calcium AST 60 H Total Protein Albumin Meds: Medications Acetaminophen (Acetaminophen 325 Mg Tablet) 650 mg PO Q6HP PRN; Protocol PRN Reason: Per Pain Protocol/Fever > 101 Last Admin: 03/11/21 09:01 Dose: 650 mg Documented by: Albuterol/Ipratropium (Ipratropium/Albuterol 3 Ml Ampul.Neb) 3 ml NEB Q4HRT PRN PRN Reason: Wheezing Dexamethasone (Dexamethasone 10 Mg/Ml Vial) 6 mg IV DAILY [facility] Last Admin: 03/11/21 09:01 Dose: 6 mg Documented by: Docusate Sodium (Docusate Sodium 100 Mg Capsule) 100 mg PO BID [facility] Last Admin: 03/12/21 07:49 Dose: Not Given Documented by: Enoxaparin Sodium (Enoxaparin 40 Mg/0.4 Ml Syringe) 40 mg SQ BID [facility] Last Admin: 03/11/21 22:05 Dose: 40 mg Documented by: Guaifenesin (Guaifenesin/Dextromethorphan Oral Mini) 10 ml PO Q4HP PRN PRN Reason: Cough Last Admin: 03/11/21 08:59 Dose: 10 ml Documented by: REMDESIVIR 100 mg/ Sodium (Chloride) 250 mls @ 500 mls/hr IV DAILY@1400 [facility] Stop: 03/12/21 14:29 Last Infusion: 03/11/21 14:36 Dose: Infused Documented by: Ibuprofen (Ibuprofen 600 Mg Tablet) 600 mg PO QIDP PRN; Protocol PRN Reason: PAIN/FEVER > 101 Last Admin: 03/11/21 22:04 Dose: 600 mg Documented by: Lactulose (Lactulose 20 Gm/30 Ml Oral.Mini) 10 gm PO DAILYP PRN PRN Reason: Constipation Levothyroxine Sodium (Levothyroxine 100 Mcg Vial) [facility] Last Admin: 03/12/21 07:06 Dose: 50 mcg Documented by: Lorazepam (Lorazepam 2 Mg/Ml Vial) 1 mg IV Q4-6HP PRN PRN Reason: ANXIETY/SEDATION Last Admin: 03/12/21 07:49 Dose: 1 mg Documented by: Ondansetron HCl (Ondansetron 4 Mg/2 Ml Vial) 4 mg IV Q4HP PRN; Protocol PRN Reason: Nausea And Vomiting Pantoprazole Sodium (Pantoprazole 40 Mg Vial) 40 mg [facility] Last Admin: 03/12/21 07:06 Dose: 40 mg Documented by: Senna (Sennosides 1 Tablet) 2 tab PO HSP PRN PRN Reason: Constipation Sodium Chloride (0.9 % Sodium Chloride 10 Ml Syringe) 10 ml IV Q8 [facility] Last Admin: 03/12/21 07:16 Dose: 10 ml Documented by: Zolpidem Tartrate (Zolpidem 5 Mg Tablet) 10 mg PO HS [facility] Last Admin: 03/11/21 22:04 Dose: 10 mg Documented by: A/P Assessment and plan (1) COVID-19: Status: Acute (2) Respiratory failure with hypoxia: Status: Acute (3) Hyponatremia: Status: Acute (4) Hypothyroidism: Status: Acute (5) Chest pain: Status: Acute Narrative A/P Narrative: Assessment and Plans: 1. CoVID pneumonia with acute respiratory failure with hypoxia: Stays in inpatient PCU with telemetry Isolation: airborne and contact Blood culture, no growth to date Serial lactic acid Procalcitonin Inflammatory markers ABG cbc w/ auto diff daily to trend WBC Supplemental oxygen titrate to achieve spo2>=92%, currently on BiPAP Remdesivir Dexamethasone Lovenox No diuretics, saline lock Tylenol PRN fever Robitussin DM PRN cough DuoNeb NEB q4hr PRN wheezing Ativan 1mg IV q4-6hr PRN anxiety 2. Hyponatremia: RESOLVED Serum sodium level 137 on 03/12 Saline lock Hold off any diuretics 3. Hypothyroidism: Continue thyroid replacement therapy 4. Chest pain: Now resolved DDx: MSK costochondritis from cough vs ACS vs GI such as GERD Robitussin DM PRN cough Ibuprofen 600mg PO QID PRN pain Troponin-i <0.01 ECG no signs of acute ischemia Protonix IV GI ppx: Protonix IV DVT ppx: Lovenox Code status: DNI DNR Prognosis: extremely guarded Disposition: inpatient PCU Time Spent With Patient Time: Total time spent is greater than 50% in coordination of care (as documented) at patient's floor/unit and/or counseling patient:
[2021-03-12] MEDS: DEXAMETHASONE 10 MG/ML VIAL IV SCH (08:43)
[2021-03-12] MEDS: ENOXAPARIN 40 MG/0.4 ML SYRINGE SQ SCH ×2 (08:44→22:04)
[2021-03-12] MEDS ORDERED: KETOROLAC 30 MG/ML VIAL IV PRN (10:12)
--- NOTE | 2021-03-12 13:09 | Internal Med Progress Note ---
SUBJECTIVE Subjective Patient information: Note initiated : 03/12/21 at 1:04 pm Service Date, if different from initiated Date: [] Patient: Jose J Hinson a 70 y/o F admitted on 03/08/21 for Covid. Chief Complaint: [] Interval history: History of present illness: Ms. Hinson is a 70 year old F history of hypothyroidism presenting with 10-day history of chills, shortness of breath, productive cough, and general body weakness. She is not vaccinated against COVID-19. She has 10-day course of symptoms including chills, shortness of breath, productive cough, and general body weakness. She denies respiratory wheezing. She denied fever or diaphoresis. She denies muscle aches. She denies chest pain. [facility] Today she was referred to our ER because of oxygen desaturations. Vital signs significant for oxygen saturations as low as upper 70s on room air, with rest of the vital signs within normal limits. Labs significant for lack of leukocytosis with WBC 7.0. Chemistry significant for hyponatremia with sodium 125. Chest x-ray from March 07, 2021 showed bilateral lower lung lobe infiltrates consistent with COVID-19 pneumonia. 03/09: Afebrile. Been on CPAP with FiO2 60% overnight. c/o chest pain. c/o productive cough with sputum production. c/o wheezing. Wants to be changed to DNI DNR. 03/10: Afebrile. Been on BiPAP 15/10, FiO2 60%. c/o SOB. c/o productive cough w ith sputum production. Denies chest pain. Denies wheezing. Denies fever, chills, or sweating. 03/11: Afebrile. Been on BiPAP 15/10, FiO2 75%. Been prone overnight. c/o SOB. Denies cough, sputum production, or wheezing.Denies chest pain. Denies fever, chills, or sweating. c/o anxiety. 03/12: Patient took off BiPAP mask last night for about 5min, and her oxygen desaturated to 20s. It took about 30min for her spo2 to go back to low 90s. Verified with patient about her code status, she still wants to be DNI DNR. Afebrile. Currently on BiPAP 15/10, FiO2 100%. c/o SOB. Denies cough, sputum production, or wheezing. Denies chest pain. Denies fever, chills, or sweating. Denies anxiety. Patient declining even further tonight and likely will not make it through the night. I talked to Davonte the about transition to comfort care so he could come in and see her before passing. He asked me to talk to Ray. I said we could transition to comfort care and keep everything in place until family comes in tonight, again he asked me to call ray to make the decision. I reached out to talk to Ray but Ray wanted Davonte to make the decision. I stated again she is likely not going to make it through the night. Ray asked about intubation and I stated that will only likely delay the inevitable for a short period of time. He is flying in [facility] from [place] sounds like he will get in about midnight. I expect we will transition to comfort care. Given how imminent the patient is and the likely transition to comfort care I told Davonte to come in and visit as well as Ray when he gets in. 03/13 Constitutional Vitals: Vital Signs Temp Pulse Resp BP Pulse Ox 97.5 F 66 35 H 88/65 96 03/12/21 12:02 03/12/21 08:50 03/12/21 12:08 03/12/21 12:08 03/12/21 12:08 Period Temp Pulse Resp BP Sys/Campo Pulse Ox Last 24 Hr 96.9 F-99.0 F 52-84 17-42 80-127/38-80 36-98 Intake and Output 03/11/21 03/12/21 03/12/21 21:59 05:59 13:59 Intake Total 490 120 Output Total 450 350 150 Balance 40 -230 -150 Weight 92.805 kg Intake & Output: Intake & Output 03/11/21 03/12/21 03/12/21 21:59 05:59 13:59 Intake Total 490 120 Output Total 450 350 150 Balance 40 -230 -150 Weight 92.805 kg Intake: IV 250 Veklury 100 mg In Sodium 250 Chloride 0.9% 250 ml @ 500 mls/ hr IV DAILY@1400 [facility] Rx#: [id number] Oral 240 120 Output: Urine Catheter Amount 450 350 150 Other: Urine Appearance Clear Clear Clear Sediment Urine Color Dark Yellow Dark Mckayla Dark Yellow # of times incontinent of 1 Bowels Exam: General: Alert, Awake, No acute Distress, obese Eyes/N/T: EOMI, Head/Neck: neck supple, CV: RRR, No murmurs, Pulm: b/l, no wheezing/rhonchi/rales Abd: soft, nontender, +BS x4 Ext: no clubbing/cyanosis/edema Neuro: Alert, no focal deficits, moves all extremities, Skin: warm/dry OBJ DATA Labs CBC & Chem 7: 03/12/21 05:22 03/12/21 05:23 Labs: Abnormal Lab Results 03/12/21 03/12/21 03/11/21 05:23 05:22 05:29 WBC 11.2 H MCHC Neut % (Auto) 90.2 H Lymph % (Auto) 7.9 L Lymph # (Auto) 0.89 L Absolute Neutrophils 10.12 H Carbon Dioxide 19 L Creatinine Glucose Calcium 7.9 L 8.1 L AST 45 H Total Protein 5.2 L 5.5 L Albumin 2.6 L 2.7 L 03/11/21 03/10/21 03/10/21 05:29 05:26 05:25 WBC MCHC 30.3 L Neut % (Auto) 87.3 H 86.9 H Lymph % (Auto) 9.6 L 9.8 L Lymph # (Auto) 0.99 L 0.98 L Absolute Neutrophils 8.98 H 8.66 H Carbon Dioxide 20 L Creatinine 0.5 L Glucose 106 H Calcium 7.9 L AST 50 H Total Protein 5.3 L Albumin 2.8 L Meds: Medications Acetaminophen (Acetaminophen 325 Mg Tablet) 650 mg PO Q6HP PRN; Protocol PRN Reason: Per Pain Protocol/Fever > 101 Last Admin: 03/11/21 09:01 Dose: 650 mg Documented by: Albuterol/Ipratropium (Ipratropium/Albuterol 3 Ml Ampul.Neb) 3 ml NEB Q4HRT PRN PRN Reason: Wheezing Dexamethasone (Dexamethasone 10 Mg/Ml Vial) 6 mg IV DAILY [facility] Last Admin: 03/12/21 08:43 Dose: 6 mg Documented by: Docusate Sodium (Docusate Sodium 100 Mg Capsule) 100 mg PO BID [facility] Last Admin: 03/12/21 07:49 Dose: Not Given Documented by: Enoxaparin Sodium (Enoxaparin 40 Mg/0.4 Ml Syringe) 40 mg SQ BID [facility] Last Admin: 03/12/21 08:44 Dose: 40 mg Documented by: Guaifenesin (Guaifenesin/Dextromethorphan Oral Mini) 10 ml PO Q4HP PRN PRN Reason: Cough Last Admin: 03/11/21 08:59 Dose: 10 ml Documented by: REMDESIVIR 100 mg/ Sodium (Chloride) 250 mls @ 500 mls/hr IV DAILY@1400 [facility] Stop: 03/12/21 14:29 Last Infusion: 03/11/21 14:36 Dose: Infused Documented by: REMDESIVIR 100 mg/ Sodium (Chloride) 250 mls @ 500 mls/hr IV Q24H [facility] Stop: 03/17/21 14:29 Ibuprofen (Ibuprofen 600 Mg Tablet) 600 mg PO QIDP PRN; Protocol PRN Reason: PAIN/FEVER > 101 Last Admin: 03/11/21 22:04 Dose: 600 mg Documented by: Ketorolac Tromethamine (Ketorolac 30 Mg/Ml Vial) 30 mg IV Q6HP PRN PRN Reason: Per Pain Protocol Stop: 03/14/21 10:12 Lactulose (Lactulose 20 Gm/30 Ml Oral.Mini) 10 gm PO DAILYP PRN PRN Reason: Constipation Levothyroxine Sodium (Levothyroxine 100 Mcg Vial) 50 mcg IV [facility] Last Admin: 03/12/21 07:06 Dose: 50 mcg Documented by: Lorazepam (Lorazepam 2 Mg/Ml Vial) 1 mg IV Q4-6HP PRN PRN Reason: ANXIETY/SEDATION Last Admin: 03/12/21 07:49 Dose: 1 mg Documented by: Ondansetron HCl (Ondansetron 4 Mg/2 Ml Vial) 4 mg IV Q4HP PRN; Protocol PRN Reason: Nausea And Vomiting Pantoprazole Sodium ([facility] 40 Mg [facility]) [facility] Last Admin: 03/12/21 07:06 Dose: 40 mg Documented by: Senna (Sennosides 1 Tablet) 2 tab PO HSP PRN PRN Reason: Constipation Sodium Chloride (0.9 % Sodium Chloride 10 Ml Syringe) 10 ml IV Q8 [facility] Last Admin: 03/12/21 07:16 Dose: 10 ml Documented by: Zolpidem Tartrate (Zolpidem 5 Mg Tablet) 10 mg PO HS [facility] Last Admin: 03/11/21 22:04 Dose: 10 mg Documented by: A/P Narrative A/P Narrative: A: *CoVID pneumonia w/ARDS: -BC neg *Acute respiratory failure with hypoxia: -on bipap @100% fio2 *Hyponatremia: RESOLVED -Hold off any diuretics *Hypothyroidism: *Chest pain: Now resolved DDx: MSK costochondritis from cough vs ACS vs GI such as GERD -Troponin-i <0.01; ECG no signs of acute ischemia *Obesity: P: -Remdesivir / Dexamethasone -Supplemental oxygen titrate to achieve spo2>=92%, currently on BiPAP -DuoNeb NEB q4hr PRN wheezing -Ativan 1mg IV q4-6hr PRN anxiety - -ppx: Lovenox / ppi Code status: DNI DNR Prognosis: extremely guarded Time Spent With Patient Time: Total time spent is greater than 50% in coordination of care (as documented) at patient's floor/unit and/or counseling patient:
[2021-03-12] MEDS: REMDESIVIR 100 MG in 0.9 % SODIUM CHLORIDE 250 ML IV SCH (14:10)
[2021-03-12] MEDS ORDERED: HALOPERIDOL LACTATE 5 MG/ML VIAL IM ONE (15:26)
[2021-03-12] MEDS ORDERED: ACETAMINOPHEN 650 MG/65 ML BAG IV PRN (16:27)
[2021-03-12] MEDS: ZOLPIDEM 5 MG TABLET PO SCH (20:39)
[2021-03-12] MEDS ORDERED: morphine 2 MG/ML VIAL ONE (23:56)
[2021-03-13] MEDS: LORazepam 2 MG/ML VIAL IV PRN ×3 (01:28→03:54)
[2021-03-13] MEDS ORDERED: morphine 2 MG/ML VIAL ONE (01:40)
[2021-03-13] MEDS ORDERED: LORazepam 2 MG/ML VIAL ONE ×2 (03:31→03:57)
[2021-03-13] MEDS: morphine 4 MG/ML VIAL IV PRN ×3 (03:35→04:21)
[2021-03-13] MEDS ORDERED: morphine 4 MG/ML VIAL ONE ×2 (03:37→04:23)
--- NOTE | 2021-03-13 07:05 | Death Note ---
Discharge Sum: Prov Provider Patient information: Note initiated : 03/13/21 at 7:03 am Service Date, if different from initiated Date: [] Patient: Jose J Hinson a 70 y/o F admitted on 03/08/21 for Covid. Chief Complaint: [] Consults: 03/08/21 Consult to Physician [CONS] Stat Comment: Consulting Provider: Luis M Newberry Reason For Exam: Physician to Consult Discharge Sum: Diag Contributing Factors (1) COVID-19: (2) Respiratory failure with hypoxia: (3) Hyponatremia: (4) Hypothyroidism: (5) Chest pain: Discharge Sum: Summary Date and Time Date of admission: 03/08/21 21:26 Date of : 03/13/21 Time of : 04:37 Summary Details: Interval history: History of present illness: Ms. Hinson is a 70 year old F history of hypothyroidism presenting with 10-day history of chills, shortness of breath, productive cough, and general body weakness. She is not vaccinated against COVID-19. She has 10-day course of symptoms including chills, shortness of breath, productive cough, and general body weakness. She denies respiratory wheezing. She denied fever or diaphoresis. She denies muscle aches. She denies chest pain. [facility] Today she was referred to our ER because of oxygen desaturations. Vital signs significant for oxygen saturations as low as upper 70s on room air, with rest of the vital signs within normal limits. Labs significant for lack of leukocytosis with WBC 7.0. Chemistry significant for hyponatremia with sodium 125. Chest x-ray from March 07, 2021 showed bilateral lower lung lobe infiltrates consistent with COVID-19 pneumonia. 03/09: Afebrile. Been on CPAP with FiO2 60% overnight. c/o chest pain. c/o productive cough with sputum production. c/o wheezing. Wants to be changed to DNI DNR. 03/10: Afebrile. Been on BiPAP 15/10, FiO2 60%. c/o SOB. c/o productive cough with sputum production. Denies chest pain. Denies wheezing. Denies fever, chills, or sweating. 03/11: Afebrile. Been on BiPAP 15/10, FiO2 75%. Been prone overnight. c/o SOB. Denies cough, sputum production, or wheezing.Denies chest pain. Denies fever, chills, or sweating. c/o anxiety. 03/12: Patient took off BiPAP mask last night for about 5min, and her oxygen desaturated to 20s. It took about 30min for her spo2 to go back to low 90s. Verified with patient about her code status, she still wants to be DNI DNR. Afebrile. Currently on BiPAP 15/10, FiO2 100%. c/o SOB. Denies cough, sputum production, or wheezing. Denies chest pain. Denies fever, chills, or sweating. Denies anxiety. Patient declining even further tonight and likely will not make it through the night. I talked to Davonte the about transition to comfort care so he could come in and see her before passing. He asked me to talk to Ray. I said we could transition to comfort care and keep everything in place until family comes in [facility], again he asked me to call ray to make the decision. I reached out to talk to Ray but Ray wanted Davonte to make the decision. I stated again she is likely not going to make it through the night. Ray asked about intubation and I stated that will only likely delay the inevitable for a short period of time. He is flying in [facility] from [place] sounds like he will get in about midnight. I expect we will transition to comfort care. Given how imminent the patient is and the likely transition to comfort care I told Davonte to come in and visit as well as Ray when he gets in. family arrived through the night. 0345 patient was medicated for comfort care prior to removing BiPAP. Patient at 0437 with family present. A/P Narrative: A: *CoVID pneumonia w/ARDS: -BC neg *Acute respiratory failure with hypoxia: *Hyponatremia: RESOLVED *Hypothyroidism: *Obesity: Additional Data Attending physician: Luis M Newberry MD
[2021-03-13] MEDS ORDERED: REMDESIVIR 100 MG in 0.9 % SODIUM CHLORIDE 250 ML IV SCH (14:00)
--- NOTE | 2021-03-18 17:55 | EKG ---
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
--- NOTE | 2021-03-18 17:56 | EKG ---
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
== END 2021-03-13 06:30 | disposition expired | DRG 177 ==
LOC: ED 15:04 → ICU 21:26
PROVIDERS: ADMIT Internal Medicine; ATTEND Internal Medicine